=== PATIENT | female | born 1970 | race African-American/Black ===

== ENCOUNTER 2019-02-05 13:25 | Emergency (ER) | payer OTHER ==
[~2019-02-05] VITALS: Ht 167.6 cm; Wt 88.0 kg
[2019-02-05] MEDS ORDERED: IBUPROFEN 800MG TABLET PO ONE (18:45)
[2019-02-05 20:20] VITALS: BP 173/110
== END 2019-02-05 20:25 | disposition home or self-care (01) ==
LOC: ER 13:25
DX: S16.1XXA Strain of muscle, fascia and tendon at neck level, initial encounter (principal); I10 Essential (primary) hypertension; Z98.890 Other specified postprocedural states; V49.88XA Car occupant (driver) (passenger) injured in other specified transport accidents, initial encounter; Y93.89 Activity, other specified; Y92.89 Other specified places as the place of occurrence of the external cause; Y99.8 Other external cause status
CPT/HCPCS: 71045; 72040; 99283; Z7610